=== PATIENT | male | born 1935 | race Caucasian/White ===

== ENCOUNTER → 2016-12-05 | Outpatient (CLI) | payer MEDICARE ==
[~2016-12-05] MED LIST: ASPI81 PO; LORTA5 PO; NIFE10 PO; SIMV20 PO
--- NOTE | 2016-12-05 11:19 | EKG ---
Date Performed: 12/05/2016 Time Performed: 10:58:36 PTAGE: 81 years EKG: SINUS BRADYCARDIA NONSPECIFIC ST & T-WAVE ABNORMALITY BORDERLINE ECG PREVIOUS TRACING : 01/23/2014 09.43 DOCTOR: Fly Pimentel Interpretating Date/Time 12/05/2016 11:18:18
== END ==
LOC: HCAV 10:47
PROVIDERS: ATTEND Urology
DX: Z01.818 Encounter for other preprocedural examination (principal); R94.31 Abnormal electrocardiogram [ECG] [EKG]
CPT/HCPCS: 93005

== ENCOUNTER → 2017-02-02 | Outpatient (CLI) | payer MEDICARE ==
[2017-02-02 09:32] LABS: HEMATOCRIT 40.5 % (39.0-51.0); MEAN CELL VOLUME 93.4 FL (80.0-100.0); MEAN CORPUSCULAR HEMOGLOBIN 31.2 PG (27.0-34.0); MEAN CORPUSCULAR HGB CONC 33.4 % (32.0-36.0); PLATELET COUNT 186 TH/MM3 (150-450); RED BLOOD COUNT 4.33 MIL/MM3 (4.50-5.90); RED CELL DISTRIBUTION WIDTH 14.4 % (11.6-17.2); REVIEW FLAG FINAL; WHITE BLOOD COUNT 6.5 TH/MM3 (4.0-11.0)
[2017-02-02 10:04] LABS: ALKALINE PHOSPHATASE 84 U/L (45-117); ALT (GPT) 15 U/L (12-78); ANION GAP 7 MEQ/L (5-15); AST (GOT) 13 U/L (15-37); BICARBONATE 29.6 MEQ/L (21.0-32.0); BLOOD UREA NITROGEN 25 MG/DL (7-18); CHLORIDE 109 MEQ/L (98-107); GLOMERULAR FILTRATION RATE 42 ML/MIN (>89); GLUCOSE,FASTING 97 MG/DL (74-99); HDL CHOLESTEROL 79.6 MG/DL (40.0-60.0); LDL CHOLESTEROL 87 MG/DL (0-99); LDL CHOLESTEROL DIRECT 88 MG/DL (0-99); SODIUM (NA) 146 MEQ/L (136-145); TOTAL BILIRUBIN ADULT 0.7 MG/DL (0.2-1.0)
[2017-02-02 14:14] LABS: HEMOGLOBIN A1a 1.1 %; HEMOGLOBIN A1b 1.8 %; HEMOGLOBIN Ao 84.9 %; HEMOGLOBIN P3 5.4 %
== END ==
LOC: PLAB 07:30
PROVIDERS: ATTEND Family Medicine
DX: R53.83 Other fatigue (principal); E78.2 Mixed hyperlipidemia; I10 Essential (primary) hypertension; E03.8 Other specified hypothyroidism; R73.01 Impaired fasting glucose
CPT/HCPCS: 36415; 80053; 80061; 83036; 83721; 84443; 85027

== ENCOUNTER → 2017-06-11 | Outpatient (CLI) | payer MEDICARE ==
[2017-06-11 11:52] LABS: HEMATOCRIT 42.8 % (39.0-51.0); MEAN CELL VOLUME 96.1 FL (80.0-100.0); MEAN CORPUSCULAR HEMOGLOBIN 31.9 PG (27.0-34.0); MEAN CORPUSCULAR HGB CONC 33.2 % (32.0-36.0); PLATELET COUNT 196 TH/MM3 (150-450); RED BLOOD COUNT 4.45 MIL/MM3 (4.50-5.90); RED CELL DISTRIBUTION WIDTH 14.6 % (11.6-17.2); REVIEW FLAG FINAL; WHITE BLOOD COUNT 5.7 TH/MM3 (4.0-11.0)
[2017-06-11 11:59] LABS: ANION GAP 4 MEQ/L (5-15); AST (GOT) 13 U/L (15-37); BICARBONATE 30.6 MEQ/L (21.0-32.0); BLOOD UREA NITROGEN 27 MG/DL (7-18); CHLORIDE 110 MEQ/L (98-107); GLOMERULAR FILTRATION RATE 36 ML/MIN (>89); GLUCOSE,FASTING 91 MG/DL (74-99); POTASSIUM 4.1 MEQ/L (3.5-5.1); SODIUM (NA) 145 MEQ/L (136-145)
[2017-06-11 12:03] LABS: ALKALINE PHOSPHATASE 81 U/L (45-117); ALT (GPT) 13 U/L (12-78); LDL CHOLESTEROL 81 MG/DL (0-99); LDL CHOLESTEROL DIRECT 95 MG/DL (0-99); TOTAL BILIRUBIN ADULT 0.9 MG/DL (0.2-1.0)
== END ==
LOC: PLAB 08:09
PROVIDERS: ATTEND Colon & Rectal Surgery
DX: R10.2 Pelvic and perineal pain (principal); E78.2 Mixed hyperlipidemia; I10 Essential (primary) hypertension; Z85.46 Personal history of malignant neoplasm of prostate
CPT/HCPCS: 36415; 80053; 80061; 83721; 84153; 85027

== ENCOUNTER → 2017-06-12 | Outpatient (CLI) | payer MEDICARE | LOC: PLAB 10:13 | PROVIDERS: ATTEND Colon & Rectal Surgery | DX: Z85.038 Personal history of other malignant neoplasm of large intestine (principal) | CPT/HCPCS: 36415; 82378 ==

== ENCOUNTER → 2017-10-02 | Outpatient (CLI) | payer MEDICARE ==
[2017-10-02 09:45] LABS: HEMATOCRIT 41.9 % (39.0-51.0); HEMOGLOBIN 14.1 GM/DL (13.0-17.0); MEAN CELL VOLUME 94.4 FL (80.0-100.0); MEAN CORPUSCULAR HEMOGLOBIN 31.8 PG (27.0-34.0); MEAN CORPUSCULAR HGB CONC 33.7 % (32.0-36.0); PLATELET COUNT 243 TH/MM3 (150-450); RED BLOOD COUNT 4.44 MIL/MM3 (4.50-5.90); RED CELL DISTRIBUTION WIDTH 13.8 % (11.6-17.2)
[2017-10-02 10:16] LABS: ALBUMIN 3.1 GM/DL (3.4-5.0); AST (GOT) 8 U/L (15-37); BICARBONATE 29.2 MEQ/L (21.0-32.0); BLOOD UREA NITROGEN 24 MG/DL (7-18); CALCIUM 9.4 MG/DL (8.5-10.1); CHLORIDE 106 MEQ/L (98-107); CREATININE 1.62 MG/DL (0.60-1.30); GLOMERULAR FILTRATION RATE 41 ML/MIN (>89); GLUCOSE,FASTING 93 MG/DL (74-99); SODIUM (NA) 141 MEQ/L (136-145)
[2017-10-02 10:18] LABS: ALT (GPT) 13 U/L (12-78); CHOLESTEROL 178 MG/DL (120-200)
[2017-10-02 10:21] LABS: ALKALINE PHOSPHATASE 86 U/L (45-117); CHOLESTEROL/ HDL RATIO 2.47 RATIO; HDL CHOLESTEROL 71.8 MG/DL (40.0-60.0); LDL CHOLESTEROL 91 MG/DL (0-99); LDL CHOLESTEROL DIRECT 86 MG/DL (0-99); TOTAL BILIRUBIN ADULT 0.6 MG/DL (0.2-1.0); TOTAL PROTEIN 6.9 GM/DL (6.4-8.2); TRIGLYCERIDES 77 MG/DL (42-150)
== END ==
LOC: PLAB 07:40
PROVIDERS: ATTEND Family Medicine
DX: E78.2 Mixed hyperlipidemia (principal); I10 Essential (primary) hypertension
CPT/HCPCS: 36415; 80053; 80061; 83721; 85027

== ENCOUNTER → 2017-12-06 | Outpatient (CLI) | payer MEDICARE ==
[2017-12-06 09:14] LABS: PROTHROMBIN TIME - PATIENT 10.1 SEC (9.8-11.6)
[2017-12-06 10:46] LABS: BICARBONATE 27.3 MEQ/L (21.0-32.0); CALCIUM 9.1 MG/DL (8.5-10.1); CREATININE 1.63 MG/DL (0.60-1.30)
[2017-12-06 10:52] LABS: HEMATOCRIT 41.8 % (39.0-51.0); HEMOGLOBIN 14.1 GM/DL (13.0-17.0); MEAN CELL VOLUME 93.1 FL (80.0-100.0); MEAN CORPUSCULAR HEMOGLOBIN 31.4 PG (27.0-34.0); MEAN CORPUSCULAR HGB CONC 33.7 % (32.0-36.0); MEAN PLATELET VOLUME 8.6 FL (7.0-11.0); PLATELET COUNT 292 TH/MM3 (150-450); RED BLOOD COUNT 4.49 MIL/MM3 (4.50-5.90); RED CELL DISTRIBUTION WIDTH 14.1 % (11.6-17.2); WHITE BLOOD COUNT 6.7 TH/MM3 (4.0-11.0)
== END ==
LOC: PLAB 07:51
PROVIDERS: ATTEND Internal Medicine Sleep Medicine
DX: J90 Pleural effusion, not elsewhere classified (principal)
CPT/HCPCS: 36415; 80048; 85027; 85610

== ENCOUNTER → 2018-01-08 | Outpatient (CLI) | payer MEDICARE ==
[2018-01-08 14:14] LABS: AUTOMATED NEUTROPHIL # 5.3 TH/MM3 (1.8-7.7); BASOPHIL # 0.1 TH/MM3 (0-0.2); BASOPHIL % 1.1 % (0.0-2.0); EOSINOPHIL # 0.1 TH/MM3 (0-0.4); EOSINOPHIL % 1.7 % (0.0-4.0); HEMATOCRIT 43.1 % (39.0-51.0); HEMOGLOBIN 14.1 GM/DL (13.0-17.0); LYMPH % 11.6 % (9.0-44.0); LYMPHOCYTE # 0.8 TH/MM3 (1.0-4.8); MEAN CELL VOLUME 92.2 FL (80.0-100.0); MEAN CORPUSCULAR HEMOGLOBIN 30.2 PG (27.0-34.0); MEAN CORPUSCULAR HGB CONC 32.8 % (32.0-36.0); MEAN PLATELET VOLUME 8.5 FL (7.0-11.0); MONO % 10.5 % (0.0-8.0); MONOCYTE # 0.7 TH/MM3 (0-0.9); NEUT % 75.1 % (16.0-70.0); PLATELET COUNT 336 TH/MM3 (150-450); RED BLOOD COUNT 4.68 MIL/MM3 (4.50-5.90); WHITE BLOOD COUNT 7.1 TH/MM3 (4.0-11.0)
[2018-01-08 14:20] LABS: BICARBONATE 30.1 MEQ/L (21.0-32.0); CALCIUM 9.2 MG/DL (8.5-10.1); CREATININE 1.89 MG/DL (0.60-1.30)
== END ==
LOC: PLAB 11:07
PROVIDERS: ATTEND Urology
DX: J91.8 Pleural effusion in other conditions classified elsewhere (principal); N13.30 Unspecified hydronephrosis
CPT/HCPCS: 36415; 80048; 85025

== ENCOUNTER → 2018-01-30 | Outpatient (CLI) | payer MEDICARE ==
[2018-01-30 10:19] LABS: HEMATOCRIT 39.7 % (39.0-51.0); HEMOGLOBIN 13.1 GM/DL (13.0-17.0); MEAN CELL VOLUME 91.7 FL (80.0-100.0); MEAN CORPUSCULAR HEMOGLOBIN 30.3 PG (27.0-34.0); MEAN PLATELET VOLUME 8.6 FL (7.0-11.0); PLATELET COUNT 463 TH/MM3 (150-450); RED BLOOD COUNT 4.33 MIL/MM3 (4.50-5.90); RED CELL DISTRIBUTION WIDTH 14.5 % (11.6-17.2); WHITE BLOOD COUNT 7.6 TH/MM3 (4.0-11.0)
[2018-01-30 10:41] LABS: ALBUMIN 2.3 GM/DL (3.4-5.0); AST (GOT) 11 U/L (15-37); BLOOD UREA NITROGEN 37 MG/DL (7-18); CALCIUM 9.1 MG/DL (8.5-10.1); CHLORIDE 106 MEQ/L (98-107); GLOMERULAR FILTRATION RATE 26 ML/MIN (>89); GLUCOSE,FASTING 88 MG/DL (74-99); SODIUM (NA) 142 MEQ/L (136-145)
[2018-01-30 10:42] LABS: CHOLESTEROL 123 MG/DL (120-200); TRIGLYCERIDES 80 MG/DL (42-150)
[2018-01-30 10:50] LABS: ALKALINE PHOSPHATASE 62 U/L (45-117); ALT (GPT) 12 U/L (12-78); CHOLESTEROL/ HDL RATIO 2.17 RATIO; HDL CHOLESTEROL 56.5 MG/DL (40.0-60.0); LDL CHOLESTEROL 51 MG/DL (0-99); LDL CHOLESTEROL DIRECT 65 MG/DL (0-99); TOTAL BILIRUBIN ADULT 0.6 MG/DL (0.2-1.0)
== END ==
LOC: PLAB 08:29
PROVIDERS: ATTEND Family Medicine
DX: N18.3 Chronic kidney disease, stage 3 (moderate) (principal); E78.2 Mixed hyperlipidemia
CPT/HCPCS: 36415; 80053; 80061; 83721; 85027